=== PATIENT | male | born 1970 | race Caucasian/White ===

== ENCOUNTER → 2016-08-05 | Outpatient (CLI) | payer OTHER ==
--- NOTE | 2016-08-05 14:53 | US ---
Ultrasound and Venous Duplex Doppler Study of the Left Lower Extremity Clinical History: 46-year-old male with left leg pain for 8 days. Rule out DVT. ICD 10 Diagnostic Codes: M79.605 and Z86.718. Technique: A high frequency transducer was used for imaging and Doppler study of the veins of the le ft lower extremity. Pulsed Doppler and color Doppler were utilized, along with various maneuvers to assess flow in the veins. Cursory evaluation of the contralateral common femoral vein was obtained f or comparison purposes. Comparison Study: Venous Doppler sonography of the left leg, dated April 20, 2008, reported as norm al. Findings: The deep veins of the left lower extremity are normally compressible between the groin and the upper calf, and have normal Doppler waveforms. There is no sonographic evidence of deep venous t hrombosis. The greater saphenous vein is compressible. The popliteal fossa is unremarkable. Impression: There is no sonographic evidence of deep or superficial vein thrombosis in the left lower extremity. As requested, results were conveyed to Dr. Emilia Haddad. A test result has been communicated to a licensed care provider and documented in the [employer] Critical Result system on 08/05/2016 14:44, Message ID [id number].
== END ==
LOC: FIMAGING 13:22
PROVIDERS: ATTEND Internal Medicine
DX: M79.605 Pain in left leg (principal); Z86.718 Personal history of other venous thrombosis and embolism